=== PATIENT | male | born 1965 | race Caucasian/White ===

== ENCOUNTER 2017-09-11 20:55 | Emergency (ER) | payer OTHER ==
--- NOTE | 2017-09-11 21:06 | PDOC ---
Rapid Medical Evaluation Time Seen by Provider: 09/11/17 21:00 Medical Evaluation: Allergies Allergy/AdvReac Type Severity Reaction Status Date / Time No Known Allergies Allergy Verified 06/20/13 12:04 09/11/17 21:00 I have performed a brief in-person evaluation of this patient. The patient presents with a chief complaint of: pain to b/l feet, "nodule to left arm and right testicle", pain to PIPs to b/l hands, seen at different hospital 6 months ago for left sided weakness and told he was fine Pertinent physical exam findings: well appearing I have ordered the following:labs The patient will proceed to the ED for further evaluation. Discharge Disposition - Diagnosis Generalized pain - Referrals - Patient Instructions - Post Discharge Activity
[2017-09-11 21:07] VITALS: BP 151/86; PULSE 71; TEMP 97.9; BMI 20.2
[2017-09-11 21:23] LABS: BASO % 0.6 % (0-2.0); EOS % 3.3 % (0-4.5); HEMATOCRIT 39.2 % (35.4-49); HEMOGLOBIN 13.7 GM/dL (11.7-16.9); LYMPH % 35.2 % (8-40); MCH 31.1 pg (25.7-33.7); MCHC 34.9 g/dl (32.0-35.9); MEAN CELL VOLUME 89.1 fl (80-96); MEAN PLT VOLUME 8.4 fl (7.5-11.1); MONO % 10.3 % (3.8-10.2); NEUT % 50.6 % (42.8-82.8); PLATELET COUNT 290 K/MM3 (134-434); RBC 4.41 M/mm3 (4.00-5.60); RDW 13.1 % (11.9-15.9); WHITE BLOOD COUNT 5.9 K/mm3 (4.0-10.0)
--- NOTE | 2017-09-11 21:27 | PDOC ---
History of Present Illness - General Chief Complaint: Pain Stated Complaint: STOMACH PAIN Time Seen by Provider: 09/11/17 21:00 - History of Present Illness Initial Comments: 09/11/17 22:11 The patient is a 52 year old male who denies PMH who presents for evaluation of multiple medical complaints. The patient reports that 6 months ago he experienced some left sided numbness and was evaluated at an outside ED where he was medically cleared. He notes over the past 20 days he has been experiencing intermittent burning to the bottom of his feet, a lump to the back of his left tricep, generalized puritis, and a lump to his right testicle. He otherwise denies fevers, chills, SOB, chest pain, nausea, vomiting, abdominal pain, weakness, or changes with urination or bowel movements. Past History - Past Medical History Allergies/Adverse Reactions: Allergies Allergy/AdvReac Type Severity Reaction Status Date / Time No Known Allergies Allergy Verified 09/11/17 21:01 Home Medications: Ambulatory Orders NK [No Known Home Medication] 06/20/13 COPD: No Other medical history: Lt side numbness 08/25/17 (neg workup) - Suicide/Smoking/Psychosocial Hx Smoking History: Never smoked Hx Alcohol Use: No Substance Use Type: None Review of Systems - Review of Systems Comments:: 09/11/17 22:19 Constitutional: No fevers, chills, fatigue, malaise HEENT: No Rhinorrhea, nasal congestion, visual changes Cardiovascular: No chest pain, syncope, palpitations, lightheadedness Respiratory: No Cough, SOB, Hemoptysis, Gastrointestinal: No Abdominal pain, Nausea, Vomiting, Constipation, Diarrhea, Melena Genitourinary: No Dysuria, Frequency, Urgency, Hesitancy, Hematuria, Flank pain Musculoskeletal: No Myalgia, arthralgia Skin: No rashes, itching, bruising, pallor Neurologic: No Headache, Dizziness, Numbness, Weakness, or Tingling Psychiatric: No Hallucinations. No SI or HI *Physical Exam - Vital Signs Last Vital Signs Temp Pulse Resp BP Pulse Ox 97.9 F 71 16 151/86 100 09/11/17 21:05 09/11/17 21:05 09/11/17 21:05 09/11/17 21:05 09/11/17 21:05 - Physical Exam Comments: 09/11/17 22:19 General Appearance: Nourished. No Apparent Distress HEENT: EOMI, DARREN. No Pharyngeal Erythema, Tonsillar Exudate, Tonsillar Erythema Neck: No Cervical Lymphadenopathy Respiratory/Chest: Lungs Clear, Normal Breath Sounds. No Crackles, Rales, Rhonchi, Wheezing Cardiovascular: Regular Rhythm, Regular Rate. No Murmur, Gallops, Rubs Gastrointestinal/Abdominal: Normal Bowel Sounds, Soft. No Guarding, Rebound, Tenderness Genital Exam: Non-tender 1-2cm lump noted to the right testicle. Normal Left Testicle. Normal external exam. No discharge noted. Musculoskeletal: No CVA Tenderness Extremity: Lipoma noted to the left tricep. 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 ED Treatment Course - LABORATORY CBC & Chemistry Diagram: 09/11/17 21:16 09/11/17 21:16 - ADDITIONAL ORDERS Additional order review: 09/11/17 21:16 RBC 4.41 MCV 89.1 MCHC 34.9 RDW 13.1 MPV 8.4 Neutrophils % 50.6 D Lymphocytes % 35.2 D Monocytes % 10.3 H Eosinophils % 3.3 Basophils % 0.6 Medical Decision Making - Medical Decision Making 09/11/17 22:20 The patient is a 52 year old male who denies PMH who presents for evaluation of multiple medical complaints. Given the patient's multiple medical complaints, the most concerning is the patient's notable lump to the right testicle. We will obtain a cbc, cmp, esr, ua and scrotal US to evaluate further for possible etiologies. We will continue to monitor and reassess in the meantime. 09/11/17 23:49 CBC, cmp, ua are unremarkable. Scrotal US demonstrates right epididymal cysts and bilateral hydrocele as read by our radiologist. We are comfortable discharging the patient home at this time with primary care provider and urology follow up. We discussed the results, plan, and return precautions with the patient who voiced understanding and is agreeable with the plan. *DC/Admit/Observation/Transfer Diagnosis at time of Disposition: Testicular lump, Epididymal cyst - Discharge Dispostion Disposition: HOME Condition at time of disposition: Good Admit: No - Referrals Referrals: Enrrique,Dexter, MD [Staff Physician] - Giles Womack MD [Staff Physician] - - Patient Instructions Printed Discharge Instructions: DI for Testicular Pain Additional Instructions: Please return to the ER if you experience concerning or worsening symptoms including worsening pain, vomiting, or fevers. Your lab results were normal. Your ultrasound results showed that you have some cysts on your right testicle. It is EXTREMELY important that you call to schedule a follow up appointment with Dr. Osuna to establish care with a primary care provider. It is also Extremely important that you call to schedule a follow up appointment with Dr. oWmack with urology to discuss your ER visit and further management of your symptoms. Por favor, regrese a la stephen de emergencias si experimenta problemas o empeoramiento de los sntomas incluyendo empeoramiento del dolor, vmitos o fiebres. Tus resultados de laboratorio ty normales. Marianne resultados de ultrasonido mostraron que ushugo tiene algunos quistes en quinn testculo derecho. Es extremadamente importante que gui llame para programar vik anahi de seguimiento con el Dr. Osuna para establecer la atencin con un proveedor de atencin primaria. Tambin es extremadamente importante que gui llame para programar vik anahi de seguimiento con el Dr. Womack con urologa para discutir quinn visita de ER y la administracin adicional de marianne sntomas. Print Language: URUGUAYAN - Post Discharge Activity
[2017-09-11 21:53] LABS: ALBUMIN 4.2 g/dl (3.4-5.0); ANION GAP 4 (8-16); BLOOD UREA NITROGEN 18 mg/dL (7-18); CALCIUM 8.7 mg/dL (8.5-10.1); CHLORIDE 107 mmol/L (98-107); CO2 29 mmol/L (21-32); CREATININE 0.9 mg/dL (0.7-1.3); GLUCOSE,RANDOM 127 mg/dL (74-106); POTASSIUM 3.9 mmol/L (3.5-5.1); SGOT/AST 17 U/L (15-37); SGPT/ALT 23 U/L (12-78); SODIUM 140 mmol/L (136-145)
[2017-09-11 21:54] LABS: ALK PHOS 85 U/L (45-117); BILIRUBIN,TOTAL 0.3 mg/dL (0.2-1.0); TOT PROT 7.4 g/dl (6.4-8.2)
--- NOTE | 2017-09-11 21:59 | PDOC ---
Attending Attestation - Resident Resident Name: Prakash Cho - ED Attending Attestation I have performed the following: I have examined & evaluated the patient, The case was reviewed & discussed with the resident, I agree w/resident's findings & plan, Exceptions are as noted - Physicial Exam PE: 09/11/17 21:57 *Physical Exam General Appearance: Yes: Appropriately Dressed. No: Apparent Distress, Intoxicated HEENT: positive: EOMI, DARREN, Normal ENT Inspection, Normal Voice, TMs Normal, Pharynx Normal. negative: Pale Conjunctivae, Photophobia, Scleral Icterus (R), Scleral Icterus (L) Neck: positive: Trachea midline, Normal Thyroid, Supple. negative: Tender, Rigid, Carotid bruit, Stridor, Lymphadenopathy (R), Lymphadenopathy (L), Thyromegaly Respiratory/Chest: positive: Lungs Clear, Normal Breath Sounds. negative: Chest Tender, Respiratory Distress, Accessory Muscle Use, Labored Respiration, RES, Crackles, Rales, Rhonchi, Stridor, Wheezing, Dullness Cardiovascular: positive: Regular Rhythm, Regular Rate, S1, S2. negative: Edema , JVD, Murmur, Bradycardia, Tachycardia Vascular Pulses: Dorsalis-Pedis (R): 2+, Doralis-Pedis (L): 2+ Gastrointestinal/Abdominal: positive: Normal Bowel Sounds, Flat, Soft. negative : Tender, Organomegaly, Pulsatile Mass, Increased Bowel Sounds, Decreased BS, Distended, Guarding, Rebound, Hernia, Hepatomegaly, Spleenomegaly Lymphatic: negative: Adenopathy, Tenderness Musculoskeletal: positive: Normal Inspection. negative: CVA Tenderness, Decreased Range of Motion Extremity: positive: Normal Capillary Refill, Normal Inspection, Normal Range of Motion, Pelvis Stable. negative: Tender, Pedal Edema, Swelling, Erythema Integumentary: positive: Normal Color, Dry, Warm. 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 negative: EOM Palsy, Facial Droop, Sensory Deficit <Eren Ham - Last Filed: 09/11/17 21:57> - HPI HPI: 09/11/17 23:23 Patient is a 52 year old male with no significant past medical history who presents to the ED with multiple medical complaints. Patient reports experiencing left sided body numbness that he states began 6 months ago. He reports experiencing associated bottom right foot burning that he states began 20 days ago and has gradually increased overtime. Patient also reports experiencing a lump on his right testicle, prompting him to come into the ED for further evaluation. Denies chest pain, Sob. Denies nausea, vomiting. Denies contact with sick individuals, out of state travelling. Denies loss of consciousness, change in vision. Denies fevers, chills. Denies slurred speech. Denies any other symptoms. Allergies: NKDA Social history: No smoking. No alcohol. No illicit drugs. Surgical history: None PMD: None <Salinas Ceballos - Last Filed: 09/11/17 23:23>
[2017-09-11 22:15] LABS: URINE APPEARANCE CLEAR; URINE BILIRUBIN NEGATIVE (<2.0 mg/dL); URINE BLOOD NEGATIVE (NEGATIVE); URINE COLOR COLORLESS; URINE GLUCOSE (UA) NEGATIVE (NEGATIVE); URINE KETONE NEGATIVE (NEGATIVE); URINE LEUK ESTERASE NEGATIVE (NEGATIVE); URINE NITRITE NEGATIVE (NEGATIVE); URINE PROTEIN NEGATIVE (NEGATIVE); URINE UROBILINOGEN NEGATIVE mg/dL (0.2-1.0)
== END 2017-09-12 00:07 | disposition home or self-care (01) ==
LOC: JER 20:55
DX: N50.3 Cyst of epididymis (principal); N43.2 Other hydrocele
CPT/HCPCS: 36415; 76870-TC; 80053; 81003; 85025; 85651; 86140; 99282-25

== ENCOUNTER 2020-08-07 12:14 | Emergency (ER) | payer OTHER ==
[2020-08-07 13:33] VITALS: BP 109/64; PULSE 76; TEMP 98.9; BMI 21.4
== END 2020-08-07 15:30 | disposition home or self-care (01) ==
LOC: JER 12:14
DX: U07.1 COVID-19 (principal)
CPT/HCPCS: 87880; 99283-25; C9803; U0003